=== PATIENT | male | born 1980 | race Caucasian/White ===

== ENCOUNTER 2021-04-06 10:52 | Emergency (ER) | payer OTHER ==
[~2021-04-06] VITALS: Ht 180.3 cm; Wt 117.9 kg
[2021-04-06] MEDS ORDERED: FLUOXETINE HCL20 MG PO (11:06)
[2021-04-06] MEDS ORDERED: METOPROLOL SUCC25 MG PO (11:06)
[2021-04-06] MEDS ORDERED: XARELTO15 MG PO (12:09)
== END 2021-04-06 12:35 | disposition home or self-care (01) ==
LOC: ED 10:52
DX: I82.412 Acute embolism and thrombosis of left femoral vein (principal); I10 Essential (primary) hypertension; Z79.899 Other long term (current) drug therapy
CPT/HCPCS: 93971; 99283-25